=== PATIENT | female | born 1950 | race Caucasian/White ===

== ENCOUNTER 2017-02-24 10:43 | Day surgery (SDC) | payer MEDICARE, BC ==
[~2017-02-24 10:43] MED LIST: Acetaminophen TAB* 325 MG PO PRN; Buffered Lidocaine 1% SYRIN* 3 ML/SYR SYRINGE INTRADERM ONE
[2017-02-24] MEDS ORDERED: Midazolam* 1 MG/ML 2 ML VIAL (2 MG) ONE ×2 (12:29→13:20)
[2017-02-24 14:21] VITALS: BP 162/76
[2017-02-24] MEDS ORDERED: Neomycin/Polymy/Dex OPHTH.OIN* 3.5 GM ONE (14:51)
[2017-02-24] MEDS ORDERED: Povidone Iodine 5% OPTH* 30 ML BTL ONE (14:51)
[2017-02-24] MEDS ORDERED: Flurbiprofen 0.03% OPTH.SOL* 2.5 ML BTL ONE (14:51)
[2017-02-24] MEDS ORDERED: acetaZOLAMIDE TAB* 250 MG ONE (14:51)
[2017-02-24] MEDS ORDERED: Cyclopentolate 1% OPTH.SOL* 2 ML BTL ONE (14:51)
[2017-02-24] MEDS ORDERED: Tropicamide 1% OPTH.SOL* BTL ONE (14:51)
[2017-02-24] MEDS ORDERED: Phenylephrine 2.5% OPTH.SOL* 2 ML BTL ONE (14:51)
[2017-02-24] MEDS ORDERED: Tetracaine 0.5% OPTH.SOL 4 ML* 1 DROP BTL ONE (14:51)
[2017-02-24] MEDS ORDERED: Lidocaine 1% MPF* 2 ML VIAL ONE (14:51)
--- NOTE | 2017-02-25 04:04 | OP ---
DATE OF OPERATION: 02/24/17 - [facility] DATE OF : 50 SURGEON: Dre Dooley MD ANESTHESIOLOGIST: Dr. Mcconnell ANESTHESIA: Monitored anesthesia care. PRE-OP DIAGNOSIS: Cataract, right eye. POST-OP DIAGNOSIS: Cataract, right eye. OPERATIVE PROCEDURE: Cataract extraction of the right eye. IMPLANTS: SN60WF 13.0 diopter lens to the right eye. COMPLICATIONS: None. DESCRIPTION OF PROCEDURE: The patient was given phenylephrine 2.5% and cyclopentolate 1% eyes drops to the operative eye in the preoperative area. The patient was brought to the operating room, where a time-out was taken to identify the correct patient, site and side of the surgery. The patient's right eye was prepped and draped in the usual sterile fashion with 5% Betadine. A second time- out was taken to verify the correct patient, site and side of the surgery and correct lens selection. A lid speculum was placed to the right eye. A 1 mm paracentesis blade was used to make a clear corneal incision in the superotemporal position. Preservative-free 1% lidocaine was injected into the anterior chamber. DisCoVisc was then injected in the anterior chamber. A 2.75 mm keratome blade was used to make a triplanar incision at the inferotemporal position. A cystotome was used to initiate a capsulorrhexis, which was completed with Utrata forceps in a continuous and curvilinear manner. Hydrodissection of the lens was then performed with BSS on a cannula. The lens could be spun in the capsular bag. The phacoemulsification handpiece was then used with a divide and conquer technique to remove the nucleus in its entirety with 15.62 CDE. The I/A handpiece was then used to remove the residual cortical lens material. DisCoVisc was then injected to inflate the capsular bag. The planned SN60WF 13.0 diopter lens was then injected in the capsular bag. The residual DisCoVisc was then removed from the eye with the I/A handpiece. The corneal incisions were then hydrated and no leaks occurred at physiologic pressure around 20 mmHg per palpation. The lid speculum was then removed and drapes removed. Maxitrol ointment was then placed to the surface of the operative eye. An adhesive patch and shield were then placed on the operative eye. The patient was taken to the postoperative area in stable condition. [id number]/[facility] #: [id number] MARBIN
== END 2017-02-24 14:10 | disposition home or self-care (01) ==
LOC: OREAST 10:43
PROVIDERS: ATTEND Student in an Organized Health Care Education/Training Program
DX: H25.11 Age-related nuclear cataract, right eye (principal); H43.813 Vitreous degeneration, bilateral; I10 Essential (primary) hypertension; I25.10 Atherosclerotic heart disease of native coronary artery without angina pectoris; G47.33 Obstructive sleep apnea (adult) (pediatric); E66.01 Morbid (severe) obesity due to excess calories; Z68.43 Body mass index [BMI] 50.0-59.9, adult
CPT/HCPCS: A9270-GY; J2250; V2632

== ENCOUNTER 2017-03-03 06:32 | Day surgery (SDC) | payer MEDICARE, BC ==
[2017-03-03] MEDS ORDERED: fentaNYL* 50 MCG/ML 2 ML VIAL (100 MCG VIAL) ONE (07:24)
[2017-03-03] MEDS ORDERED: Midazolam* 1 MG/ML 2 ML VIAL (2 MG) ONE ×2 (07:24→07:43)
[2017-03-03 08:21] VITALS: BP 148/65
[2017-03-03] MEDS ORDERED: Neomycin/Polymy/Dex OPHTH.OIN* 3.5 GM ONE (10:52)
[2017-03-03] MEDS ORDERED: Lidocaine 1% MPF* 2 ML VIAL ONE (10:52)
[2017-03-03] MEDS ORDERED: Phenylephrine 2.5% OPTH.SOL* 2 ML BTL ONE (10:52)
[2017-03-03] MEDS ORDERED: Cyclopentolate 1% OPTH.SOL* 2 ML BTL ONE (10:52)
[2017-03-03] MEDS ORDERED: acetaZOLAMIDE TAB* 250 MG ONE (10:52)
[2017-03-03] MEDS ORDERED: Flurbiprofen 0.03% OPTH.SOL* 2.5 ML BTL ONE (10:52)
[2017-03-03] MEDS ORDERED: Tropicamide 1% OPTH.SOL* BTL ONE (10:52)
[2017-03-03] MEDS ORDERED: Tetracaine 0.5% OPTH.SOL 4 ML* 1 DROP BTL ONE (10:52)
[2017-03-03] MEDS ORDERED: Povidone Iodine 5% OPTH* 30 ML BTL ONE (10:52)
--- NOTE | 2017-03-03 22:34 | OP ---
DATE OF OPERATION: 03/03/17 - [facility] DATE OF : 50 SURGEON: Dre Dooley MD ANESTHESIOLOGIST: Dr. Mcconnell ANESTHESIA: Monitored anesthesia care. PRE-OP DIAGNOSIS: Cataract, left eye. POST-OP DIAGNOSIS: Cataract, left eye. OPERATIVE PROCEDURE: Cataract extraction of the left eye. IMPLANTS: SN60WF 12.5 diopter lens to the left eye. COMPLICATIONS: None. DESCRIPTION OF PROCEDURE: The patient was given phenylephrine 2.5% and cyclopentolate 1% eye drops to the operative eye in the preoperative area. The patient was brought to the operating room, where a time-out was taken to identify the correct patient, site and side of the surgery. The patient's left eye was prepped and draped in the usual sterile fashion with 5% Betadine. A second time- out was taken to verify the correct patient, site and side of the surgery and correct lens selection. A lid speculum was placed to the left eye. A 1-mm paracentesis blade was used to make a clear corneal incision in the inferotemporal position. Preservative-free 1% lidocaine was injected into the anterior chamber. DisCoVisc was injected into the anterior chamber. A 2.75-mm keratome blade was used to make a triplanar incision at the superotemporal position. A cystotome was used to initiate a capsulorrhexis, which was completed with Utrata forceps in a continuous and curvilinear manner. Hydrodissection of the lens was then performed with BSS on a cannula. The lens could be spun in the capsular bag. The phacoemulsification handpiece was used with a divide and conquer technique to remove the nucleus in its entirety with 13.43 CDE. The I/A handpiece was then used to remove the residual cortical lens material. DisCoVisc was injected to inflate the capsular bag. The planned SN60WF 12.5 diopter lens was injected into the capsular bag. The residual DisCoVisc was removed from the eye with the I/A handpiece. The corneal incisions were hydrated and no leaks occurred at physiologic pressure around 20 mmHg per palpation. The lid speculum was removed and drapes removed. Maxitrol ointment was placed on the surface of the operative eye. An adhesive patch and shield was placed on the operative eye. The patient was taken to the postoperative area in stable condition. [id number]/[facility] #: [id number] [facility]ITALJ[facility]
== END 2017-03-03 08:30 | disposition home or self-care (01) ==
LOC: OREAST 06:32
PROVIDERS: ATTEND Student in an Organized Health Care Education/Training Program
DX: H25.12 Age-related nuclear cataract, left eye (principal); I10 Essential (primary) hypertension; H43.813 Vitreous degeneration, bilateral; E66.01 Morbid (severe) obesity due to excess calories; Z68.43 Body mass index [BMI] 50.0-59.9, adult
CPT/HCPCS: A9270-GY; J2250; J3010; V2632

== ENCOUNTER 2019-08-13 09:13 | Emergency (ER) | payer MEDICARE, BC ==
--- NOTE | 2019-08-13 09:41 | ED ---
Lower Extremity - HPI Summary HPI Summary: Pt. is a 68 y.o female who presents to the ER for left knee pain x 1 day. Pt. states yesterday she was walking out a restroom when she felt a snap and pain to her left knee. Pt. states today unable to bear weight secondary to pain. No hx of knee pain. Sxs are mild in severity. Denies numbness, tingling or weakness to leg. - History of Current Complaint Chief Complaint: EDExtremityLower Stated Complaint: LEFT KNEE INJURY PER PT Time Seen by Provider: 08/13/19 09:40 Hx Obtained From: Patient Pain Intensity: 20 - Allergies/Home Medications Allergies/Adverse Reactions: Allergies Allergy/AdvReac Type Severity Reaction Status Date / Time codeine Allergy Severe Nausea Verified 08/13/19 09:38 shellfish derived Allergy Nausea And Verified 08/13/19 09:38 Vomiting Contrast dye Allergy Swelling Uncoded 08/13/19 09:38 Home Medications: Home Medications C,E,Zinc,Copper 11/Njitx8f/Lut [Ocuvite Adult 50 Plus Softgel] 1 each PO DAILY 08/13/19 [History Confirmed 08/13/19] Cholecalciferol CAP/TAB(NF) [Vitamin D3 CAP/TAB (NF)] 1,000 unit PO DAILY [History Confirmed 08/13/19] Escitalopram * [Lexapro *] 20 mg PO DAILY 08/13/19 [History Confirmed 08/13/19] PMH/Surg Hx/FS Hx/Imm Hx Previously Healthy: Yes Cardiovascular History: Reports: Hx Coronary Artery Disease - CHOLESTEROL CONTROL WITH MEDS, Hx Hypercholesterolemia, Hx Hypertension - ON MEDICATION FOR Respiratory History: Reports: Hx Sleep Apnea - wears O2 and cpap AT NIGHT. OXYGEN SET AT 2 Musculoskeletal History: Reports: Hx Arthritis - RIGHT FOOT ANKLE, BILATERAL HANDS, KNEES, AND BACK, Hx Back Problems - low back pain Denies: Hx Rheumatoid Arthritis, Hx Osteoporosis Sensory History: Reports: Hx Cataracts - BILATERAL, Hx Contacts or Glasses - GLASSES Denies: Hx Hearing Aid Opthamlomology History: Reports: Hx Cataracts - BILATERAL, Hx Contacts or Glasses - GLASSES Psychiatric History: Reports: Hx Depression - on medication - Surgical History Surgery Procedure, Year, and Place: Tonsillectomy: 1955; Carpal Tunnel Release of Right Wrist: unsure of date; Cholecystectomy at [facility] in 1991; Hysterectomy at [facility] in 1985; Four Right Ankle Surgeries; Back Surgery at [facility] in. 1996 and 1999; Stim Placement in back at [place] in 2005. 10/07/14 Trial Dorsal column stimulator. 07/2016 Rochestor Dorsal Column Stimulator AND THEN PERMANENT Hx Anesthesia Reactions: No Infectious Disease History: No Infectious Disease History: Denies: Traveled Outside the [place] in Last 30 Days - Family History Known Family History: Positive: Non-Contributory - Social History Occupation: Retired Lives: With Family Alcohol Use: None Alcohol Amount: Once a month Substance Use Type: Reports: None Substance Use Comment - Amount & Last Used: oxycodone Smoking Status (MU): Never Smoked Tobacco Have You Smoked in the Last Year: No Review of Systems Constitutional: Negative Negative: Fever Positive: Other - Left knee pain Skin: Negative Neurological: Negative Negative: Weakness, Paresthesia, Numbness All Other Systems Reviewed And Are Negative: Yes Physical Exam Triage Information Reviewed: Yes Vital Signs On Initial Exam: Initial Vitals Temp Pulse Resp BP Pulse Ox 98.2 F 86 16 124/84 96 08/13/19 09:14 08/13/19 09:14 08/13/19 09:14 08/13/19 09:14 08/13/19 09:14 Vital Signs Reviewed: Yes Appearance: Positive: Well-Appearing - Pt. sitting on side of bed in NAD. Obese. Pleasant. present. Skin: Positive: Warm, Dry Head/Face: Positive: Normal Head/Face Inspection Eyes: Positive: Normal, EOMI Musculoskeletal: Positive: Other - Good pedal pulse to left foot. No calf edema or tenderness. Pain and small effusion to medial left knee. Quadriceps tendon intact. No laxity. Pain with ROM. No overlying erythema or warmth. Neurological: Positive: Normal, CN Intact II-III Psychiatric: Positive: Affect/Mood Appropriate Procedures - Sedation Patient Received Moderate/Deep Sedation with Procedure: No - Splinting Left Lower Extremity Location: applied by nurse Pre-Made Type: knee immobilizer Pre-Proc Neuro Vasc Exam: normal Post-Proc Neuro Vasc Exam: normal Diagnostics - Vital Signs Vital Signs Temp Pulse Resp BP Pulse Ox 08/13/19 09:14 98.2 F 86 16 124/84 96 - Laboratory Lab Statement: Any lab studies that have been ordered have been reviewed, and results considered in the medical decision making process. Lower Extremity Course/Dx - Course Course Of Treatment: Knee x-ray shows chronic changes without acute findings, reading per radiology. No evidence of infection on exam. Cristiano wrap placed for comfort. Patient states she has a walker at home she can use for ambulation. Will have patient follow-up with orthopedic clinic for further evaluation if pain persists. Advised to elevate and ice intermittently. Anti-inflammatories as directed. Patient understands and agrees with plan. - Diagnoses Differential Diagnosis/HQI/PQRI: Positive: Arthritis, Fracture (Closed), Sprain , Strain Provider Diagnoses: Knee injury Discharge ED - Sign-Out/Discharge Documenting (check all that apply): Patient Departure - Discharge Plan Condition: Good Disposition: HOME Patient Education Materials: Knee Sprain (ED) Referrals: Sukumar Guevara MD [Medical Doctor] - Maria Ines Yeager MD [Primary Care Provider] - Additional Instructions: Call the orthopedic clinic today to schedule a close follow up appointment Wear immobilizer Ice and elevate Tylenol or Motrin for pain as directed Activity as tolerated Return to ER if symptoms change or worsen - Billing Disposition and Condition Condition: GOOD Disposition: Home
[2019-08-13 11:27] VITALS: BP 157/72
== END 2019-08-13 11:25 | disposition home or self-care (01) ==
LOC: ED 09:13
DX: S89.92XA Unspecified injury of left lower leg, initial encounter (principal); X58.XXXA Exposure to other specified factors, initial encounter; Y92.9 Unspecified place or not applicable; I25.10 Atherosclerotic heart disease of native coronary artery without angina pectoris; E78.00 Pure hypercholesterolemia, unspecified; I10 Essential (primary) hypertension; F32.9 Major depressive disorder, single episode, unspecified; Z79.899 Other long term (current) drug therapy; Z90.49 Acquired absence of other specified parts of digestive tract; Z90.710 Acquired absence of both cervix and uterus; Z88.5 Allergy status to narcotic agent; Z91.041 Radiographic dye allergy status
CPT/HCPCS: 99282

== ENCOUNTER 2024-02-20 07:55 | Inpatient (IN) ==
[2024-02-20 08:35] LABS: Rapid COVID-19 Molecular Undetected (Undetected)
[2024-02-20] MEDS ORDERED: Rocuronium 50 mg VIAL 10 mg/ml 5 ml VIAL (50 mg) ONE (08:40)
[2024-02-20] MEDS ORDERED: fentaNYL 100 mcg/2 ml 50 MCG/ML VIAL ONE ×3 (08:40→12:37)
[2024-02-20] MEDS ORDERED: Midazolam 2 mg/2 ml VIAL 1 mg/ml 2 ml VIAL (2 mg) ONE (08:40)
[2024-02-20] MEDS ORDERED: Propofol 10 MG/ML 20 ML BTL ONE (08:41)
[2024-02-20] MEDS ORDERED: Lidocaine 2% PF 5 ML VIAL ONE (08:41)
[2024-02-20] MEDS ORDERED: Dexmedetomidine 200 mcg/2 ml 2 ml VIAL (200 mcg) ONE (08:59)
[2024-02-20] MEDS ORDERED: ceFAZolin 2 GM PREMIX 2 GM/50 ML BAG ONE (09:07)
[2024-02-20] MEDS ORDERED: Tranexamic Acid 1 GM/100ML BAG 2,000 MG/200 ML BAG IV ONE (09:07)
[2024-02-20] MEDS ORDERED: Famotidine IV 10 MG/ML 2 ml VIAL (20 mg) ONE (09:25)
[2024-02-20] MEDS ORDERED: ROPIVACAINE 5 MG/ML 30 ML BTL (0.5%) ONE ×2 (09:37→10:18)
[2024-02-20] MEDS: Lactated Ringers 1000 ml BAG 1,000 ML IV SCH ×2 (09:43→15:51)
[2024-02-20] MEDS: Famotidine IV 10 MG/ML 2 ml VIAL (20 mg) IV ONE (09:43)
[2024-02-20] MEDS ORDERED: HYDROmorphone 0.5 MG/0.5 ML SYRINGE ONE ×2 (10:58→11:27)
[2024-02-20] MEDS ORDERED: Labetalol IV 5 MG/ML 20 ml VIAL ONE (11:32)
[2024-02-20] MEDS ORDERED: Naloxone 0.4 mg VIAL 0.4 mg/ml 1 ml VIAL IV PRN (11:45)
[2024-02-20] MEDS ORDERED: fentaNYL 100 mcg/2 ml 50 MCG/ML VIAL IV PRN (11:45)
[2024-02-20] MEDS ORDERED: HYDROmorphone 1 MG/1 ML SYRINGE IV PRN (11:45)
[2024-02-20] MEDS ORDERED: hydrALAZINE 20 mg/ml 1 ML Vial IV ONE (12:46)
[2024-02-20] MEDS ORDERED: Lactulose 30 ml UDC PO PRN (13:25)
[2024-02-20] MEDS ORDERED: Morphine 2 MG/ML SYRINGE IV PRN (13:25)
[2024-02-20] MEDS ORDERED: Magnesium Hydroxide LIQ 30 ML UDC PO PRN (13:25)
[2024-02-20] MEDS ORDERED: Scopolamine 1 mg/72hr PATCH TRANSDERM PRN (13:33)
[2024-02-20] MEDS: Buffered Lidocaine 1% SYRIN 1 ml INTRADERM ONE (16:01)
[2024-02-20] MEDS: ceFAZolin 1 GM ADVAN 1 GM in NS 0.9% 50 ML 50 ML IVPB SCH (19:38)
[2024-02-20] MEDS: Magnesium Hydroxide LIQ 30 ML UDC PO SCH (21:04)
[2024-02-21 06:13] LABS: Hematocrit 33.6 % (35-45); Mean Platelet Volume 8.8 fL (7.5-11.2); Platelet Count 278 10^3/uL (150-450)
[2024-02-21 06:29] LABS: Calcium 8.7 mg/dL (8.6-10.3); Creatinine, Serum 0.73 mg/dL (0.51-0.95); Potassium 4.6 mmol/L (3.5-5.0); eGFR CKD-EPI 86.8 (>60)
[2024-02-21] MEDS: Vitamin THERAPEUTIC TAB PO SCH (08:49)
[2024-02-21] MEDS: Cholecalciferol (VIT D3) 1,000 unit TAB PO SCH (08:49)
[2024-02-21 10:07] VITALS: BP 131/62
== END 2024-02-21 12:27 | disposition home or self-care (01) | DRG 470 ==
LOC: AA 07:55 → INTOOBSV 07:55 → SSU 13:25
PROVIDERS: ADMIT Orthopaedic Surgery Adult Reconstructive Orthopaedic Surgery; ATTEND Orthopaedic Surgery Adult Reconstructive Orthopaedic Surgery